=== PATIENT | male | born 1965 | race Caucasian/White ===

== ENCOUNTER 2025-04-08 22:08 | Emergency (ER) | payer OTHER, SELFPAY ==
[2025-04-08 22:18] VITALS: BP 206/111; PULSE 77; RESP 18; TEMP 36.8; O2SAT 97; BMI 29.7
--- OUTSIDE RECORDS SUMMARY | 2025-04-08 22:32 | XMS_ITS | Clinical Summary ---
Author Organization [facility] Address [address] [place] [id number] Care Team Providers Care Service Counselor Name Role Phone Unavailable Primary Care Provider Unavailabl e Source Comments This information has been disclosed to you from confidential records protectedfrom disclosure by state law. You shall make no further disclosure of thisinformation without the specific, written, and informed release of theindividual to whom it pertains, or as otherwise permitted by law. A generalauthorization for the release of medical or other information is not sufficientfor the purposes of therelease of HIV test results or diagnoses. [id number] Social History Tobacco Use Types Packs/Day Years Used Date Smoking Tobacco: Never Assessed Sex and Gender Information Value Date Recorded Sex Assigned at Not on file Legal Sex Male 1:59 PM EST Gender Identity Not on file Sexual Orientation Not on file Plan of Treatment Not on file Insurance [facility]
--- NOTE | 2025-04-08 22:56 | HMH.EDGENADL ---
Discharge Plan Disposition Patient Disposition: Home, Self-Care Prescriptions Prescriptions: New amoxicillin-pot clavulanate 875-125 mg tablet 1 tab PO BID 7 Days Qty: 14 0RF Referrals Follow up/Referrals: Linwood Romero MD [Primary Care Provider, Medical] - See instructions Activity Restrictions/Add. Instructions Additional Instructions/Restrictions: Please take antibiotics and use eye ointment as prescribed. Please follow-up with an eye doctor. Please return to the emergency department if you develop any new or worsening symptoms or become concerned for your health. Clinical Impressions Clinical Impression: Preseptal cellulitis of left eye Stand Alone Forms Stand Alone Forms: Work/School Release Print Language Print Language: Romansh Discharge ED Provider: Bran Aldrich Adult HPI General Chief complaint: Eye Problems Stated complaint: left eye is swollen and painful Time Seen by Provider: 04/08/25 22:56 Mode of Arrival: Ambulatory Source of Information: Patient Description of Symptoms (Recalled from ER Triage Doc. by RN): Pt presents for left eye swelling. Pt states he has had chronic issues of swelling with his eye but the last couple of days the swelling has become worse and is now having pressure in his ear and states his hearing has been affected History of Present Illness HPI narrative: 59-year-old male presents for left eye swelling. He reports that he has had this happen before. The last time it happened was 5 or 6 months ago. He has seen an eye doctor but never found a significant explanation of the issue. This time it started within the last couple of days. He reports pain, feels like something is in it but he has never gotten anything as far as he is aware. Reports he has had drainage from the left eye. He has been taking some [id number] eyedrops.. Related Data Previous Rx's ?Medication ?Instructions ?Recorded amoxicillin 875 mg-potassium 1 tab PO BID 7 days #14 tabs 04/08/25 clavulanate 125 mg tablet Allergies Allergy/AdvReac Type Severity Reaction Status Date / Time No Known Allergies Allergy Verified 04/08/25 23:14 [facility] Disclaimer: The information contained in this section may have been updated after the patient was seen, as this information can be updated by other users. Social History Smoking Status: Current every day smoker alcohol intake: never current occupational status: employed Travel in the last 8 weeks?: None ROS Obtained: Yes All systems reviewed & no additional complaints except as documented Physical Exam General General appearance: alert and in no apparent distress Head Head exam: atraumatic and normocephalic Eye Eye exam: Present PERRL, EOMI and other (Right eye is normal in appearance. Left eye there is edema and erythema of the left upper eyelid greater than lower eyelid. Mild tenderness. No conjunctival injection. No fluorescein uptake on Cox lamp exam.) ENT ENT exam: Present normal oropharynx and normal external ear exam Neck Neck exam: Present normal inspection and full ROM Chest Chest inspection: Present normal inspection and symmetric chest wall rise; Absent tenderness Respiratory Respiratory exam: Present normal lung sounds bilaterally; Absent respiratory distress Cardiovascular Cardiovascular exam: Present regular rate and normal rhythm Abdominal Exam Abdominal exam: Present soft; Absent distention, tenderness or guarding Extremities Exam Extremities exam: Present normal inspection; Absent edema or joint swelling Back Exam Back exam: Present normal inspection; Absent tenderness Neurological Exam Neurological exam: Present alert and oriented X3; Absent motor sensory deficit Psychiatric Psychiatric exam: Present normal affect and normal mood Skin Skin exam: Present warm, dry and normal color Lymphatic Lymphatic Findings: no adenopathy Medical Decision Making Medical Records Medical records reviewed: Yes I reviewed the patient's medical records. Screening: Per USPSTF and CDC recommendations, given the prevalence of disease in our region, it is our hospital?s policy to screen for HIV and viral Hepatitis for all patients aged 18 and over and those with ongoing risk factors. Lyndon Inquiry Pt receiving controlled substance: No Lyndon was queried for this patient: No Vital Signs: 04/08/25 22:18 04/09/25 00:22 Temperature 98.2 F 98.2 F Temperature Source Oral Oral Pulse Rate 80 Pulse Rate [Right] 77 Respiratory Rate 18 18 Blood Pressure 164/95 H Blood Pressure [Right Arm] 206/111 H Blood Pressure Mean [Right Arm] 142 Blood Pressure Source Automatic Cuff Blood Pressure Source [Right Arm] Automatic Cuff Blood Pressure Position Sitting Blood Pressure Position [Right Arm] Sitting 02 Sat by Pulse Oximetry 97 Oxygen Delivery Method Room Air Room Air Lab Data Lab results reviewed: Yes I reviewed the patient's lab results. Orders (Tests/Meds): ED MEDICATIONS Discontinued Medications Generic Name Dose Route Start Last Admin Trade Name Freq PRN Reason Stop Dose Admin Amoxicillin/Clavulanate Potassium 1 each 04/08/25 23:15 04/09/25 00:16 Amoxicillin/Clavulanate Potassium 875/125mg Tablet PO 04/08/25 23:16 1 each ONCE ONE Administration Erythromycin 1 gm 04/08/25 23:11 04/09/25 00:18 Erythromycin Base 1 Gm Oint...G. OP 04/08/25 23:12 1 gm ONCE ONE Administration Fluorescein Sodium 1 mg 04/08/25 23:11 04/09/25 00:17 Fluorescein Sodium 1mg Strip OP 04/08/25 23:12 1 mg ONCE ONE Administration Tetracaine HCl 0 ml 04/08/25 23:11 04/09/25 00:17 Tetracaine 0.5% Opth Zuri 15ml OP 04/08/25 23:12 15 ml ONCE ONE Administration Medical Decision Narrative: 59-year-old male with history of recurrent left eye problems presents for couple days of worsening left eyelid swelling and discharge. History was obtained via interactive discussion with patient. On arrival, patient is [afebrile, hemodynamically stable, satting appropriately, alert, oriented x4, GCS 15], moving all extremities spontaneously. Full physical exam performed and significant for left eye findings as documented above. Differential includes but is not limited to preseptal cellulitis, preseptal cellulitis, allergies, conjunctivitis, chalazion, hordeolum, eye foreign body, corneal abrasion. Patient was given erythromycin ointment. Cox lamp exam shows no fluorescein uptake. No pain with eye movement or eye bulge to suggest preseptal cellulitis. Presentation is most consistent with preseptal cellulitis. Patient was initiated on Augmentin and instructed to use erythromycin as prescribed. Instructed to follow-up with an eye doctor. Return precautions given. Procedures Risk/Benefits of Procedure(s) Were Explained: Yes Critical Care Critical Care Time Critical Care Time: No
--- NOTE | 2025-04-08 23:03 | PC.NURSE ---
ED provider at the bedside.
[2025-04-09] MEDS: AMOXICILLIN/CLAVULANATE POTASSIUM 875/125MG TABLET 1 EACH PO (00:16)
[2025-04-09] MEDS: FLUORESCEIN SODIUM 1MG STRIP 1 MG OP (00:17)
[2025-04-09] MEDS: TETRACAINE 0.5% OPTH SOL 15ML OP (00:17)
[2025-04-09] MEDS: ERYTHROMYCIN BASE 1 GM OINT...G. OP (00:18)
[2025-04-09 00:22] VITALS: BP 164/95; PULSE 80; RESP 18; TEMP 36.8; O2SAT 98
== END 2025-04-09 00:23 | disposition home or self-care (01) ==
PROVIDERS: Emergency Provider Emergency Medicine; PCP Family Medicine
DX: L03.213 Periorbital cellulitis (principal); H57.12 Ocular pain, left eye
CPT/HCPCS: 99283